=== PATIENT | female | born 1945 | race Caucasian/White ===

== ENCOUNTER → 2019-08-15 | Outpatient (CLI) | payer MEDICARE ==
[~2019-08-15] MED LIST: BUPIVACAINE MPF 0.25% 10 ML VIAL. ONE; HYDR-2761 PO; HYDR12.575 PO; IOHEXOL 180 MG/ML 10 ML VIAL. ONE; LIDOCAINE 1% PF 2 ML VIAL. ONE; NAPR220C4 PO; [UNRECOGNIZED DRUG - CODE] PO; methylPREDNISolone ACETATE 40 MG/ML VIAL. ONE; methylPREDNISolone ACETATE 80 MG/ML VIAL. ONE
--- NOTE | 2019-08-16 04:06 | PAIN ---
DATE OF SERVICE: 08/15/2019 INITIAL CONSULTATION FOR PAIN CLINIC CHIEF COMPLAINT: Low back and left greater than right hip and leg pain. HISTORY OF PRESENT ILLNESS: This is a 74-year-old female who presents with history of pain for at least 5 years, increasing over the past 1 year across the low back, worse with standing, walking, changing positions, keeping her from sleep at night. The patient reports it is worse with activity, wakes her from sleep at least 2-3 times at night, does not affect her bowel or bladder control or ability to walk, but she has pain while she is walking. She is just simply putting up with it and getting through it. The patient has had epidural injections in the past, physical therapy, chiropractic treatment and doing exercise currently all of which were limited in decreasing the pain. The patient reports she takes Aleve as well as hydrocodone. The Aleve actually helps better than the hydrocodone does and most recently taken yesterday. The patient reports the pain is across the low back into the bilateral hips and mostly in the back itself, again worse on the left side, it is constant with some tingling and numbness sensation as well as a burning sensation in the back, exacerbated with walking, standing, changing positions especially getting up from the seated position. The patient rates her disability rating from 0-10, 10 being the worst, 7 with family and home responsibilities, 9 with recreation and social activity, 1 with self-care and 3 with life support activities. The patient did have an MRI scan of the lumbar spine showing moderate degenerative changes, disk bulging, facet arthropathy similar to prior study with some moderate disk space narrowing at L4-L5 as well as L5-S1, [id number] facet arthropathy at L4-L5, ligamentum flavum thickening as well as moderate facet arthropathy and thickening at right greater than left at the L5-S1 level. PAST MEDICAL HISTORY: Significant for arthritis, hearing loss, chronic constipation and pernicious anemia. PAST SURGICAL HISTORY: Previous surgeries include right breast biopsy and had previous . CURRENT MEDICATIONS: Include hydrochlorothiazide, arginine, B12, naproxen and hydrocodone. ALLERGIES: THE PATIENT IS ALLERGIC TO BACTRIM AND CIPRO. FAMILY HISTORY: Significant for pernicious anemia. SOCIAL HISTORY: The patient does not drink alcohol, does not smoke, does not use any illegal, illicit or recreational drugs. She is and has 2 adult children living with her and lives locally in [place]. REVIEW OF SYSTEMS: The patient's review of systems is positive for those items mentioned in history of present illness. All systems reviewed and otherwise negative. It is complete, full and well documented on the patient's chart. PHYSICAL EXAMINATION: VITAL SIGNS: The patient's blood pressure is 166/89, pulse 87, respiration 18, temperature 98.3. The patient has height of 5 foot 6 inches, weighs 186 pounds. GENERAL: The patient is awake, alert, oriented, appropriate, very pleasant demeanor. HEENT: Shows normocephalic, atraumatic. Extraocular movements are intact and symmetrical. Oral cavity: Mucous membranes moist and pink. Dentition is intact. NECK: Shows anterior throat supple without palpable lymphadenopathy noted. Swallow reflex is symmetrical. CHEST: Shows normal on inspection. Breath sounds are clear to auscultation bilaterally. HEART: Shows S1, S2 clear. No murmurs auscultated. ABDOMEN: Soft, nontender, nondistended. No palpable organomegaly is noted. No rebound or guarding demonstrated. BACK: Shows spine grossly in the midline. Normal appearing thoracic kyphosis and some mild flattening of lumbar lordotic curvature. Lumbar paraspinous muscle shows symmetrical on inspection, on palpation shows some moderate tenderness diffusely, but only diffusely without radiation. The patient has good rotational motion of lumbar spine with some moderate tenderness with right and left lateral rotation past 10 degrees and significant tenderness with extension greater than 10 degrees and axial loading of the lumbar spine. Forward flexion is performed without difficulty and without significant pain reported. EXTREMITIES: The patient's lower extremities show deep tendon reflexes at 2+ over the patellar and 1+ tendo calcaneus tendons. Motor exam is approximately 4 on a scale of 5, but symmetrical with dorsiflexion and extension, quadriceps and hamstring flexion equal. Peripheral pulses are 1+ in posterior tibia. No peripheral edema is noted. Straight leg raise noted to be negative for reproduction of radicular symptoms. Lower extremities are warm and dry to touch, equal in color and appearance. Gaenslen's and Wayne's maneuvers are negative as well bilaterally. She is able to stand, stand on her toes without significant difficulty or loss of balance, walks with a normal appearing gait for short distance in the office today, not using any assistive devices to ambulate. SKIN: Shows warm and dry, good turgor. No edema. No sores, rashes or bruising throughout. IMPRESSION: 1. This is a 74-year-old female with approximate 5-year history of increasing pain in low back, bilateral hips, worse with standing, walking, changing positions, consistent with facet arthropathy syndrome. 2. MRI scan of lumbar spine as noted. 3. Arthritis. 4. Hearing loss. PLAN: Options were discussed with the patient and the patient's daughter who accompanied her to visit today including conservative medical managements, physical therapies and interventional techniques. She would like to pursue interventional techniques. We discussed bilateral L4-L5 and L5-S1 facet joint injection using description as well as anatomical models to describe the procedure. Risks were then discussed including, but not limited to bleeding, infection, possibility of epidural hematoma, subsequent neurological compromise, dural puncture, headaches, spinal cord and/or nerve damage, side effects of steroid medication and poor results regarding pain control. The patient understands and wished to proceed. The patient will return to clinic in approximately 2 weeks for followup, was counseled as to return appointment, activity level and side effects to be aware of. DIAGNOSES: Lumbar and lumbosacral spondylosis. PROCEDURE: Lumbar L4-L5 and L5-S1 facet joint injections bilaterally under sterile prep and drape using local anesthetic. MEDICATION INJECTED: Under C-arm fluoroscopic guidance, medication injected is a total of 120 mg Depo-Medrol, 4 mL of 0.25% bupivacaine and 2 mL of contrast. CONDITION AT DISCHARGE: Stable. The patient tolerated the procedure well, had no complications. FELIX PAGE MD DR: ZACHARY/[place]eles JOB#: [id number] / [id number] TAY Telles MD
== END ==
LOC: PNCL 12:37
PROVIDERS: ATTEND Anesthesiology
DX: M47.817 Spondylosis without myelopathy or radiculopathy, lumbosacral region (principal); D64.9 Anemia, unspecified; Z87.39 Personal history of other diseases of the musculoskeletal system and connective tissue; Z88.8 Allergy status to other drugs, medicaments and biological substances; Z98.890 Other specified postprocedural states
CPT/HCPCS: 64493; 64494; J1030; J1040; J3490; Q9965